=== PATIENT | female | born 1970 | race Caucasian/White ===

== ENCOUNTER 2023-01-25 16:19 | Emergency (ER) | payer MEDICAID ==
[~2023-01-25] VITALS: Ht 167.6 cm; Wt 81.6 kg
[2023-01-25 16:40] VITALS: BP 111/71; PULSE 53; RESP 20; TEMP 97.2; O2SAT 99
[2023-01-25 17:49] VITALS: BP 128/79; PULSE 74; RESP 17; O2SAT 99
--- NOTE | 2023-01-25 17:49 | NUR ---
Patient discharged with v/s stable. Written and verbal after care instructions given and explained. Patient verbalized understanding. Ambulatory with steady gait. All questions addressed prior to discharge. Advised to follow up with PMD.
== END 2023-01-25 18:10 | disposition home or self-care (01) ==
LOC: MED 16:19
DX: S20.219A Contusion of unspecified front wall of thorax, initial encounter (principal); S40.021A Contusion of right upper arm, initial encounter; S40.022A Contusion of left upper arm, initial encounter; V89.2XXA Person injured in unspecified motor-vehicle accident, traffic, initial encounter; Y93.89 Activity, other specified; Y92.89 Other specified places as the place of occurrence of the external cause; Y99.8 Other external cause status
CPT/HCPCS: 71045; 99283